=== PATIENT | female | born 1935 | race Caucasian/White ===

== ENCOUNTER → 2017-10-01 11:38 | Outpatient (CLI) | payer MEDICARE, OTHER, SELFPAY ==
[2017-10-01 13:18] LABS: Absolute Lymphocyte Count 1.38 X10^3/ul (0.83-4.51); Basophil# 0.04 X10^3/uL; Basophil% 0.7 % (0-1); Eosinophils% 3.3 % (0-5); Hematocrit 42.5 % (37-47); Hemoglobin 13.1 g/dl (12.0-15.0); Lymphocyte # 1.38 X10^3/ul (4.0); Lymphocyte % 22.7 % (19-41); Mean Corp Hgb Conc 30.8 g/gl (32-36); Mean Corpuscular Hgb 31.6 pg (27.0-32.0); Mean Corpuscular Volume 102.4 fL (81-99); Mean Platelet Vol. 13.1 fl (6.2-12.0); Monocyte# 0.47 X10^3/uL; Monocyte% 7.7 % (0-10); Neutrophil # 3.98 X10^3/uL (2.7-7.7); Neutrophil % 65.4 % (47-70); Platelet Count 148 K/mm3 (150-450); RBC Distribution Width CV 13.9 % (11.6-14.6); Red Blood Count 4.15 M/mm3 (4.2-5.4); White Blood Count 6.1 K/mm3 (4.4-11.0)
[2017-10-01 13:29] LABS: POSITIVE COUNT NO; POSITIVE DIFFERENTIAL NO; POSITIVE MORPHOLOGY NO
[2017-10-01 13:48] LABS: ALB/GLOB Ratio 1.3 RATIO (0.9-2.4); AST(SGOT) 21 U/L (15-37); Alanine Aminotransfer ALT/SGPT 27 U/L (13-56); Albumin, Serum 3.4 g/dL (3.2-5.0); Alkaline Phosphatase 104 U/L (45-117); Anion Gap 6 (5-15); BUN 13 mg/dL (7-18); BUN/Creat Ratio 14.1 RATIO (10-20); Calcium,Total 8.6 mg/dL (8.5-10.1); Chloride 106 mmol/L (98-107); Creatinine, Serum 0.92 mg/dL (0.55-1.02); EST Glomerular Filtration Rate 62 mL/min (>60); Est Glom Filt Rate - Afr Amer 75 mL/min (>60); Globulin 2.7 g/dL (2.2-4.2); Glucose 81 mg/dL (74-106); Potassium 4.3 mmol/L (3.5-5.1); Protein, Total 6.1 g/dL (6.4-8.2); Sodium Level 143 mmol/L (136-145); Thyroid Stim Hormone (TSH) 1.56 uIU/mL (0.358-3.74)
[2017-10-02 10:37] LABS: Vitamin D,25 Hydroxy 9.7 ng/mL (19.95-100.01)
== END ==
PROVIDERS: Family Provider Internal Medicine; Visit Provider Family Medicine Geriatric Medicine
DX: E55.9 Vitamin D deficiency, unspecified (principal); R53.83 Other fatigue
CPT/HCPCS: 36415; 80053; 82306; 84443; 85025

== ENCOUNTER → 2018-03-31 11:33 | Outpatient (CLI) | payer MEDICARE, OTHER, SELFPAY ==
[2018-03-31 12:03] LABS: Absolute Lymphocyte Count 1.36 X10^3/ul (0.83-4.51); Absolute Neutrophil Count 1.4 X10^3/uL (2.0-7.7); Basophil# 0.03 X10^3/uL; Eosinophil# 0.05 X10^3/uL; Eosinophils% 1.6 % (0-5); Hematocrit 37.7 % (37-47); Lymphocyte # 1.36 X10^3/ul (4.0); Lymphocyte % 44.3 % (19-41); Mean Corp Hgb Conc 31.8 g/gl (32-36); Mean Corpuscular Hgb 33.1 pg (27.0-32.0); Mean Corpuscular Volume 103.9 fL (81-99); Mean Platelet Vol. 12.4 fl (6.2-12.0); Monocyte# 0.28 X10^3/uL; Monocyte% 9.1 % (0-10); Neutrophil # 1.35 X10^3/uL (2.7-7.7); Platelet Count 68 K/mm3 (150-450); RBC Distribution Width CV 13.3 % (11.6-14.6); RBC Distribution Width SD 49.6 fl (35.1-43.9); Red Blood Count 3.63 M/mm3 (4.2-5.4); White Blood Count 3.1 K/mm3 (4.4-11.0)
[2018-03-31 12:21] LABS: POSITIVE COUNT NO; POSITIVE DIFFERENTIAL NO; POSITIVE MORPHOLOGY NO
[2018-03-31 16:12] LABS: ALB/GLOB Ratio 1.3 RATIO (0.9-2.4); AST(SGOT) 13 U/L (15-37); Alanine Aminotransfer ALT/SGPT 14 U/L (13-56); Albumin, Serum 3.4 g/dL (3.2-5.0); Alkaline Phosphatase 92 U/L (45-117); Anion Gap 11 (5-15); BUN 15 mg/dL (7-18); Calcium,Total 8.7 mg/dL (8.5-10.1); Chloride 108 mmol/L (98-107); EST Glomerular Filtration Rate 56 mL/min (>60); Est Glom Filt Rate - Afr Amer 68 mL/min (>60); Globulin 2.7 g/dL (2.2-4.2); Glucose 92 mg/dL (74-106); Potassium 4.3 mmol/L (3.5-5.1); Protein, Total 6.1 g/dL (6.4-8.2); Sodium Level 145 mmol/L (136-145); Thyroid Stim Hormone (TSH) 2.18 uIU/mL (0.358-3.74)
== END ==
PROVIDERS: Family Provider Internal Medicine; Visit Provider Family Medicine Geriatric Medicine
DX: E55.9 Vitamin D deficiency, unspecified (principal); R53.83 Other fatigue
CPT/HCPCS: 36415; 80053; 84443; 85025

== ENCOUNTER 2018-04-16 07:01 | Inpatient (IN) | payer MEDICARE, OTHER, SELFPAY ==
[2018-04-16 07:03] VITALS: BP 134/114; PULSE 78; RESP 20; TEMP 36.6; O2SAT 94; BMI 22.0
--- NOTE | 2018-04-16 07:07 | EKG12_ITS ---
Test Reason : Blood Pressure : / mmHG Vent. Rate : 070 BPM Atrial Rate : 070 BPM P-R Int : 158 ms QRS Dur : 076 ms QT Int : 394 ms P-R-T Axes : 046 -07 014 degrees QTc Int : 425 ms Normal sinus rhythm Normal ECG Confirmed by TIKI CROWE ([id number]), editorial director CRYSTAL JOY ([id number] on 04/22/2018 1:52:29 PM Referred By: Confirmed By:TIKI CROWE
--- NOTE | 2018-04-16 07:19 | ED.VISSUMM ---
- ER Visit Summary Date of Service: 04/16/18 Chief Complaint: Confusion History of Present Illness: The patient is a 82 F presenting with confusion. Per her family she had a very restless night. She was found at 4 AM this morning already dressed and awake. Family states this is unusual for her. She has had a constant twitching of her face and arms. She has a history of baseline dementia but is more confused than usual. She has been eating and drinking normally. She is unable to provide history. No recent falls per family. She is not on anticoagulants. Physical Examination: Vitals are stable. Patient is afebrile. Alert no acute distress. HEENT exam dry mucous membranes Neck is supple. Lungs are clear and equal bilaterally. Heart is regular rate and rhythm. Abdomen is soft nontender nondistended. Extremities symmetric edema Skin is warm and dry. Alert and oriented ?0, follows commands. Moves all extremities Remainder of exam is unremarkable. Emergency Department Course and Treatment: CBC normal except hemoglobin 11.9. Chemistries show sodium 147, BUN 23. INR 1.0. Urinalysis shows 25-50 white blood cells, 3+ bacteria. Troponin negative. Lactic acid is normal. Magnesium is normal. Chest x-ray shows no acute process. EKG is sinus rate of 70 with no acute ischemic changes. Urine culture was sent. She was given Rocephin IV and IV fluids. Discussed with the hospitalist for admission. Disposition: Admission Impression: Delirium secondary to UTI, dehydration This note was generated with LIS[employer] dictation software. It may contain incorrect words, spelling, and punctuation that were not noted in review of the chart prior to signing ED Disposition - Plan for ED Patient: Chief Complaint: Confusion Referrals: James Comer Chi, MD [Primary Care Provider] -
--- NOTE | 2018-04-16 07:19 | NURSING ---
NO OLD EKGS
[2018-04-16 07:49] LABS: Absolute Lymphocyte Count 1.22 X10^3/ul (0.83-4.51); Absolute Neutrophil Count 3.1 X10^3/uL (2.0-7.7); Basophil# 0.03 X10^3/uL; Basophil% 0.6 % (0-1); Eosinophil# 0.07 X10^3/uL; Eosinophils% 1.5 % (0-5); Hematocrit 37.8 % (37-47); Hemoglobin 11.9 g/dl (12.0-15.0); Lymphocyte # 1.22 X10^3/ul (4.0); Lymphocyte % 25.3 % (19-41); Mean Corp Hgb Conc 31.5 g/gl (32-36); Mean Corpuscular Hgb 32.3 pg (27.0-32.0); Mean Corpuscular Volume 102.7 fL (81-99); Mean Platelet Vol. 11.4 fl (6.2-12.0); Monocyte# 0.36 X10^3/uL; Monocyte% 7.5 % (0-10); Neutrophil # 3.14 X10^3/uL (2.7-7.7); Neutrophil % 65.1 % (47-70); POSITIVE COUNT NO; POSITIVE DIFFERENTIAL NO; POSITIVE MORPHOLOGY NO; Platelet Count 150 K/mm3 (150-450); RBC Distribution Width CV 13.8 % (11.6-14.6); RBC Distribution Width SD 52.3 fl (35.1-43.9); Red Blood Count 3.68 M/mm3 (4.2-5.4); White Blood Count 4.8 K/mm3 (4.4-11.0)
[2018-04-16 07:50] LABS: Mucous, Urine 0 SEEN /hpf (<or=2+)
[2018-04-16 08:04] LABS: Anion Gap 7 (5-15); BUN 23 mg/dL (7-18); BUN/Creat Ratio 23.4 RATIO (10-20); Calcium,Total 8.8 mg/dL (8.5-10.1); Chloride 111 mmol/L (98-107); Creatinine, Serum 0.98 mg/dL (0.55-1.02); EST Glomerular Filtration Rate 58 mL/min (>60); Est Glom Filt Rate - Afr Amer 70 mL/min (>60); Estimated Creatinine Clearance 43.04 ml/min; Glucose 110 mg/dL (74-106); Magnesium 2.3 mg/dL (1.6-2.6); Sodium Level 147 mmol/L (136-145)
[2018-04-16 08:05] LABS: Prothrombin Time (Protime)PT. 13.1 SECONDS (11.7-14.9)
[2018-04-16 08:19] LABS: Lactic Acid 1.4 mmol/L (0.4-2.0)
[2018-04-16 08:21] LABS: Color, Urine Yellow (Yellow); Glucose, Dipstick Normal (Normal); Ketone-Dipstick Negative (Negative); Leukocyte Esterase-Dipstick 500 /ul (Negative); Nitrite-Dipstick Negative (Negative); Occult Blood-Urine 250 /ul (Negative); Protein-Dipstick 100 mg/dl (Negative); Specific Gravity, Urine 1.025 (1.002-1.030); Urine Bilirubin Dipstick Negative (Negative); Urine Clarity Cloudy (Clear); Urine Urobilinogen Normal (Normal)
[2018-04-16 08:27] LABS: Bacteria 3+ /hpf (None Seen); Red Blood Cells-Urine 10-25 SEEN /hpf (0-5); Squamous Epithelial Cells - UA 0-5 SEEN /hpf (5-10)
[2018-04-16 08:28] LABS: White Blood Cells 25-50 SEEN /hpf (0-5)
[2018-04-16 09:01] VITALS: BP 138/99; PULSE 71; RESP 16; O2SAT 94
--- NOTE | 2018-04-16 10:07 | NURSING ---
MED SURG AMS, UTI, ALZ DEMENTIA INGE
--- NOTE | 2018-04-16 10:21 | PCM.HP.STD ---
Problem List (1) Alzheimer's dementia Status: Chronic (2) UTI (urinary tract infection) Status: Acute (3) Acute encephalopathy Status: Acute History of Present Illness Date of Admission: 04/16/18 Chief Complaint: Change in mental status today The patient is a 82 year old F with history of Alzheimer's dementia, from 2011 who lives with her sister who is her caregiver and power of commonwealth attorney was brought into ER after she was more confused, was dressed up at 4 AM in the morning today was awake. She was very restless and had is being picked like movement of head and shoulders. Patient has advanced Alzheimer's dementia and does not have meaningful communication. She has monosyllable words and garbled speech which does not make sense and hard to understand. No meaningful/purposeful history unobtainable from the patient. She had some chills for last 2 days. As per her sister, Ms. Karey Simmons, her forgetfulness is started in 2011 which got worse over 2 years to the point that she cannot take care of herself and was diagnosed Alzheimer's dementia in [facility]. ED initial blood work shows UA positive of pyuria, mild hematuria, leukocyte esterase positive but negative nitrite. No leukocytosis. BMP shows mild hyponatremia and hyperchloremia Past Medical History Past Medical History (Chronic Problems): Chronic Problems Alzheimer's dementia (Chronic) Allergies No Known Allergies Allergy (Verified 04/16/18 09:33) Home Medications: Ambulatory Orders Medication Instructions Recorded Lorazepam [Ativan] 1 mg PO TID PRN 04/16/18 Memantine HCl/Donepezil HCl 1 tab PO QHS 04/16/18 [Namzaric 28 mg-10 mg Capsule] Polyethylene Glycol 3350 [Miralax] 17 gm PO MOWEFR 04/16/18 Quetiapine Fumarate [Seroquel] 100 mg PO TID 04/16/18 Smoking Status: Unknown if ever smoked - *Family History Paternal History Items: - - Unobtainable Review of Systems Unable to obtain accurate/complete ROS d/t: Patient's advanced Alzheimer dementia and no meaningful conversation VTE Information - Inpt Only VTE Present on Admission: No VTE Mechan Device Prophylaxis: SCD's, None VTE Pharm Prophylaxis ordered?: Yes Patient Problems: Active and Suspected Problems UTI (urinary tract infection) (Acute) Acute encephalopathy (Acute) - Physical Exam General: Alert, Cooperative, Confused, Disoriented HEENT: Atraumatic, PERRLA, EOMI, Normocephalic Oral: Dry Mucosa Neck: Supple, No JVD, Negative Carotid Bruits Lungs: Clear to auscultation, Normal air movement Cardiovascular: Regular rate, Normal S1, Normal S2, No murmurs Abdomen: Bowel Sounds Present, Soft, Non Tender, Non-Distended Extremities: No edema, Capillary Refill Less than 3 Seconds Skin: No rashes, No breakdown Musculoskeletal: No Tenderness to Palpation of Joints or Extremities, Arthritic Changes, Muscle Wasting Neurological: Cranial nerves II-XII grossly intact, Neuro grossly intact Psych/Mental Status: Normal Affect, Appropriate Vital Signs Temp Pulse Resp BP Pulse Ox 97.8 F 71 16 138/99 H 94 04/16/18 07:03 04/16/18 09:01 04/16/18 09:01 04/16/18 09:01 04/16/18 09:01 Assessment/Plan All Active Problems UTI (urinary tract infection) (Acute) Acute encephalopathy (Acute) The patient is a 82 year old F with history of Alzheimer's dementia, from 2011 who lives with her sister who is her caregiver and power of commonwealth attorney was brought into ER after she was more confused, was dressed up at 4 AM in the morning today was awake. She was very restless and had is being picked like movement of head and shoulders. Patient has advanced Alzheimer's dementia and does not have meaningful communication. She has monosyllable words and garbled speech which does not make sense and hard to understand. No meaningful/purposeful history unobtainable from the patient. She had some chills for last 2 days. As per her sister, Ms. Karey Simmons, her forgetfulness is started in 2011 which got worse over 2 years to the point that she cannot take care of herself and was diagnosed Alzheimer's dementia in [facility]. ED initial blood work shows UA positive of pyuria, mild hematuria, leukocyte esterase positive but negative nitrite. No leukocytosis. BMP shows mild hyponatremia and hyperchloremia 1. Acute encephalopathy most probably infectious/metabolic on baseline advanced Alzheimer's dementia: Urine culture is being sent from ER. Patient is being admitted on regular floor. Started on IV Rocephin. IV fluid normal saline. 2. Alzheimer's dementia: Patient's sister is okay with taking care of the patient. She wants to take her back at discharge. practice managers consult for discharge planning. T and OT ordered. 3. Mild constipation on MiraLAX: DVT prophylaxis: On Lovenox 40 mils subcu daily. Code Visit Inpatient E&M: 42431 Init Hosp L2
[2018-04-16] MEDS: Ceftriaxone 1 GM/50 ML BAG IV (10:32)
[2018-04-16 10:53] VITALS: BMI 21.5
[2018-04-16 10:54] VITALS: BMI 21.4
[2018-04-16] MEDS: Enoxaparin 40 MG/0.4 ML Syringe SC (13:27)
[2018-04-16] MEDS: 0.9% Normal Saline 1,000 ML 100 ML IV (13:27)
--- NOTE | 2018-04-16 15:26 | CPS ---
patient unable to comprehend instruction
[2018-04-16] MEDS: LORazepam 1 MG Tablet PO (16:55)
[2018-04-16 17:09] VITALS: BP 130/69; PULSE 93; RESP 18; TEMP 36.6
[2018-04-16] MEDS: QUEtiapine 100 MG Tablet PO (17:21)
[2018-04-16 21:30] VITALS: BP 106/55; PULSE 70; RESP 20; TEMP 36.6; O2SAT 94
[2018-04-16 21:35] VITALS: O2SAT 94
--- NOTE | 2018-04-16 22:00 | NURSING ---
Pt to drowsy to give 2200 scheduled medications. Pt sister/caregiver at bedside, assisted this nurse to wake pt. Unable to safely administer medications at this time.
[2018-04-17] MEDS: QUEtiapine 100 MG Tablet PO (05:42)
[2018-04-17 06:00] VITALS: BP 135/78; PULSE 64; RESP 16; TEMP 36.6; O2SAT 100
[2018-04-17 06:19] LABS: Absolute Lymphocyte Count 1.16 X10^3/ul (0.83-4.51); Absolute Neutrophil Count 1.7 X10^3/uL (2.0-7.7); Basophil# 0.02 X10^3/uL; Basophil% 0.6 % (0-1); Eosinophil# 0.09 X10^3/uL; Eosinophils% 2.7 % (0-5); Hematocrit 37.3 % (37-47); Hemoglobin 11.5 g/dl (12.0-15.0); Lymphocyte # 1.16 X10^3/ul (4.0); Lymphocyte % 34.9 % (19-41); Mean Corp Hgb Conc 30.8 g/gl (32-36); Mean Corpuscular Hgb 31.9 pg (27.0-32.0); Mean Corpuscular Volume 103.3 fL (81-99); Mean Platelet Vol. 11.2 fl (6.2-12.0); Neutrophil # 1.65 X10^3/uL (2.7-7.7); Neutrophil % 49.8 % (47-70); Platelet Count 144 K/mm3 (150-450); RBC Distribution Width CV 13.8 % (11.6-14.6); RBC Distribution Width SD 51.8 fl (35.1-43.9); Red Blood Count 3.61 M/mm3 (4.2-5.4); White Blood Count 3.3 K/mm3 (4.4-11.0)
[2018-04-17 06:29] LABS: POSITIVE COUNT NO; POSITIVE DIFFERENTIAL NO; POSITIVE MORPHOLOGY NO
[2018-04-17 06:35] LABS: Anion Gap 4 (5-15); BUN 19 mg/dL (7-18); BUN/Creat Ratio 23.1 RATIO (10-20); Calcium,Total 8.3 mg/dL (8.5-10.1); Chloride 112 mmol/L (98-107); Creatinine, Serum 0.82 mg/dL (0.55-1.02); EST Glomerular Filtration Rate 71 mL/min (>60); Est Glom Filt Rate - Afr Amer 86 mL/min (>60); Estimated Creatinine Clearance 51.44 ml/min; Glucose 96 mg/dL (74-106); Potassium 4.5 mmol/L (3.5-5.1); Sodium Level 146 mmol/L (136-145)
[2018-04-17] MEDS: Ceftriaxone 1 GM/50 ML BAG IV (09:39)
[2018-04-17] MEDS: Enoxaparin 40 MG/0.4 ML Syringe SC (10:41)
[2018-04-17] MEDS: Memantine Hydrochloride 10 MG Tablet PO (10:41)
--- NOTE | 2018-04-17 11:30 | CASEMGMT ---
SEKOU MENDIOLA Face to Face with patient for initial transition planning/care coordination assessment. SEKOU MENDIOLA introduced self and role at [facility]. Patient lying in bed, confused, sister Karey at bedside who is HPOA. Karey willing to participate in assessment and is able to answer all questions appropriately. Care providers, pharmacy, and demographics verified. Patient lives with sister in [facility] and assists with care. Sister denies need for DME. Sister states that patient attends adult day care 3 times per week. Patient also has aide services through [facility]. Sister wishes for patient to discharge home, denies additional needs at this time. Sister states she has no further needs or concerns at this time. CM to follow for discharge planning needs that may arise. Disposition plan: Patient to discharge home with family suppor, aide services, adult day care, and follow-up plans in place. Debi MORFIN, RN, CM
--- NOTE | 2018-04-17 11:50 | PCM.DC ---
- Discharge Diagnoses Current Active Problems: Current Active and Chronic Problems Alzheimer's dementia (Chronic) UTI (urinary tract infection) (Acute) Acute encephalopathy (Acute) You will use the following diet at home:: Regular Discharge Activity: May Not Drive Weight Bearing Status: Weight bearing as tolerated Call your doctor if you observe: Fever of 101 or Higher, Inability to urinate, Inability to have a bowel movement, Shortness of breath Allergies/Adverse Reactions: Allergies No Known Allergies Allergy (Verified 04/16/18 09:33) Medications to take at Discharge Lorazepam [Ativan] 1 mg PO TID PRN 04/16/18 Memantine HCl/Donepezil HCl [Namzaric 28 mg-10 mg Capsule] 1 tab PO QHS 04/16/18 Polyethylene Glycol 3350 [Miralax] 17 gm PO MOWEFR 04/16/18 Quetiapine Fumarate [Seroquel] 100 mg PO TID 04/16/18 Docusate Sodium [Colace] 200 mg PO BID PRN PRN capsule 04/17/18 Smz/Tmp Ds [Bactrim Ds] 1 tab PO BID #2 tab 04/17/18 The following prescriptions were given: Smz/Tmp Ds [Bactrim Ds] 1 tab PO BID #2 tab Primary Care Physician: James Comer Chi, MD [Primary Care Provider] - Please follow up with your Primary Care Physician in: in 2 weeks Test Results: Test results from this visit will be discussed in further detail at your follow-up appointment, if applicable.
--- NOTE | 2018-04-17 12:31 | PCM.DC.SUM ---
Discharge Date and Diagnosis Date of Admission: 04/16/18 Date of Discharge: 04/17/18 - Primary Discharge Diagnosis Active and Suspected Problems Acute encephalopathy most probably infectious/metabolic on baseline advanced Alzheimer's dementia: Culture negative lower UTI/cystitis Alzheimer's dementia: P - Secondary Discharge Diagnosis Chronic Problems Alzheimer's dementia (Chronic) Hospital Course and Treatment Summary of Care Provided: T[] The patient is a 82 year old F with history of Alzheimer's dementia, from 2011 who lives with her sister who is her caregiver and power of securities attorney was brought into ER after she was more confused, was dressed up at 4 AM in the morning today was awake. She was very restless and had is being picked like movement of head and shoulders. Patient has advanced Alzheimer's dementia and does not have meaningful communication. She has monosyllable words and garbled speech which does not make sense and hard to understand. No meaningful/purposeful history unobtainable from the patient. She had some chills for last 2 days. As per her sister, Ms. Karey Simmons, her forgetfulness is started in 2011 which got worse over 2 years to the point that she cannot take care of herself and was diagnosed Alzheimer's dementia in [facility]. ED initial blood work shows UA positive of pyuria, mild hematuria, leukocyte esterase positive but negative nitrite. No leukocytosis. BMP shows mild hyponatremia and hyperchloremia 1. Acute encephalopathy most probably infectious/metabolic on baseline advanced Alzheimer's dementia: Patient treated with 2 days of IV ceftriaxone on on basis of positive UA and encephalopathy although detail history of lower urinary tract is not elicitable because of Alzheimer's dementia. She was discharged on 1 more day of Bactrim DS 1 tablet twice daily. Later on urine culture is negative. IV fluid normal saline discontinued 2. Alzheimer's dementia: Patient's sister is okay with taking care of the patient. Patient discharged to home 3. Mild constipation on MiraLAX: DVT prophylaxis: On Lovenox 40 mils subcu daily. Discharge medication reconciliation done. Discharge follow-up instructions discussed with the patient's sister. Discharge need was assessed by the case manager specialist. Discharge Activity: May Not Drive Weight Bearing Status: Weight bearing as tolerated Call your doctor if you observe: Fever of 101 or Higher, Inability to urinate, Inability to have a bowel movement, Shortness of breath Home Medications: Medications to take at Discharge Lorazepam [Ativan] 1 mg PO TID PRN 04/16/18 Memantine HCl/Donepezil HCl [Namzaric 28 mg-10 mg Capsule] 1 tab PO QHS 04/16/18 Polyethylene Glycol 3350 [Miralax] 17 gm PO MOWEFR 04/16/18 Quetiapine Fumarate [Seroquel] 100 mg PO TID 04/16/18 Docusate Sodium [Colace] 200 mg PO BID PRN PRN capsule 04/17/18 Smz/Tmp Ds [Bactrim Ds] 1 tab PO BID #2 tab 04/17/18 Following Prescrptions Were Given to Patient: Smz/Tmp Ds [Bactrim Ds] 1 tab PO BID #2 tab Primary Care Physician: James Comer Chi, MD [Primary Care Provider] - Please follow up with your Primary Care Physician in: in 2 weeks Medical Necessity - Tobacco Use Smoking Status: Unknown if ever smoked Meaningful Use Info Meaningful Use Diagnoses (Choose all that apply): None applicable Code Visit OBSV E&M: 13929 Observation care discharge
== END 2018-04-17 13:10 | disposition home or self-care (01) | DRG 689 ==
LOC: ED 10:09 → MS3 10:19
PROVIDERS: Admitting Provider Internal Medicine; Emergency Provider Emergency Medicine; Family Provider Family Medicine Geriatric Medicine; PCP Family Medicine Geriatric Medicine; Visit Provider Internal Medicine
DX: N30.91 Cystitis, unspecified with hematuria (principal); G93.41 Metabolic encephalopathy; K59.00 Constipation, unspecified; G30.9 Alzheimer's disease, unspecified; F02.80 Dementia in other diseases classified elsewhere, unspecified severity, without behavioral disturbance, psychotic disturbance, mood disturbance, and anxiety; E87.8 Other disorders of electrolyte and fluid balance, not elsewhere classified
CPT/HCPCS: 36415; 71045; 80048; 81001; 83605; 83735; 84484; 85025; 85610; 87086; 93005; 97162; 97166; 99285; J7030; J7040; P9612; A4216

== ENCOUNTER → 2019-04-03 08:50 | Outpatient (CLI) | payer MEDICARE, OTHER, SELFPAY ==
[2019-04-03 12:58] LABS: Absolute Lymphocyte Count 1.15 X10^3/uL (0.83-4.51); Absolute Neutrophil Count 2.1 X10^3/uL (2.0-7.7); Basophil# 0.04 X10^3/uL; Basophil% 1.1 % (0-1); Eosinophil# 0.14 X10^3/uL; Eosinophils% 3.8 % (0-5); Hematocrit 43.8 % (37-47); Hemoglobin 13.5 g/dL (12.0-15.0); Lymphocyte # 1.15 X10^3/ul (4.0); Lymphocyte % 30.9 % (19-41); Mean Corp Hgb Conc 30.8 g/dL (32-36); Mean Corpuscular Hgb 32.4 pg (27.0-32.0); Mean Platelet Vol. 12.3 fl (6.2-12.0); Monocyte# 0.28 X10^3/uL; Monocyte% 7.5 % (0-10); NRBC Flagged by Analyzer 0 % (0-5); Neutrophil % 56.4 % (47-70); Platelet Count 120 K/mm3 (150-450); RBC Distribution Width CV 13.1 % (11.6-14.6); RBC Distribution Width SD 50.8 fl (35.1-43.9); Red Blood Count 4.17 M/mm3 (4.2-5.4); White Blood Count 3.7 K/mm3 (4.4-11.0)
[2019-04-03 13:19] LABS: Vitamin D,25 Hydroxy 18.3 ng/mL (29.95-100.01)
[2019-04-03 13:20] LABS: AST(SGOT) 16 U/L (15-37); Alanine Aminotransfer ALT/SGPT 16 U/L (13-56); Albumin, Serum 3.2 g/dL (3.2-5.0); Alkaline Phosphatase 105 U/L (45-117); Anion Gap 6 (5-15); BUN 16 mg/dL (7-18); BUN/Creat Ratio 14.8 RATIO (10-20); Calcium,Total 8.6 mg/dL (8.5-10.1); Chloride 110 mmol/L (98-107); Creatinine, Serum 1.08 mg/dL (0.55-1.02); EST Glomerular Filtration Rate 51 mL/min (>60); Est Glom Filt Rate - Afr Amer 62 mL/min (>60); Globulin 3.1 g/dL (2.2-4.2); Glucose 92 mg/dL (74-106); Potassium 4.4 mmol/L (3.5-5.1); Protein, Total 6.3 g/dL (6.4-8.2); Sodium Level 144 mmol/L (136-145)
== END ==
PROVIDERS: Family Provider Family Medicine Geriatric Medicine; PCP Family Medicine Geriatric Medicine; Visit Provider Family Medicine Geriatric Medicine
DX: E55.9 Vitamin D deficiency, unspecified (principal); R53.83 Other fatigue
CPT/HCPCS: 36415; 80053; 82306; 84443; 85025

== ENCOUNTER → 2019-08-31 16:22 | Outpatient (CLI) | payer MEDICARE, SELFPAY | PROVIDERS: PCP Family Medicine Geriatric Medicine; Visit Provider Family Medicine Geriatric Medicine | DX: N39.0 Urinary tract infection, site not specified (principal) | CPT/HCPCS: 87086; 87088 ==

== ENCOUNTER → 2019-10-02 09:54 | Outpatient (CLI) | payer MEDICARE, SELFPAY ==
[2019-10-02 13:09] LABS: Absolute Lymphocyte Count 0.92 X10^3/uL (0.83-4.51); Absolute Neutrophil Count 3.2 X10^3/uL (2.0-7.7); Basophil# 0.04 X10^3/uL; Basophil% 0.9 % (0-1); Eosinophil# 0.04 X10^3/uL; Eosinophils% 0.9 % (0-5); Hematocrit 42.6 % (37-47); Hemoglobin 13.3 g/dL (12.0-15.0); Lymphocyte # 0.92 X10^3/ul (4.0); Mean Corp Hgb Conc 31.2 g/dL (32-36); Mean Corpuscular Hgb 32.2 pg (27.0-32.0); Mean Corpuscular Volume 103.1 fL (81-99); Mean Platelet Vol. 12.1 fl (6.2-12.0); Monocyte# 0.23 X10^3/uL; Monocyte% 5.2 % (0-10); NRBC Flagged by Analyzer 0 % (0-5); Neutrophil # 3.15 X10^3/uL (2.7-7.7); Neutrophil % 71.8 % (47-70); Platelet Count 161 K/mm3 (150-450); RBC Distribution Width CV 14.3 % (11.6-14.6); RBC Distribution Width SD 54.8 fl (35.1-43.9); Red Blood Count 4.13 M/mm3 (4.2-5.4); White Blood Count 4.4 K/mm3 (4.4-11.0)
[2019-10-02 13:32] LABS: ALB/GLOB Ratio 0.9 RATIO (0.9-2.4); AST(SGOT) 15 U/L (15-37); Alanine Aminotransfer ALT/SGPT 17 U/L (13-56); Alkaline Phosphatase 157 U/L (45-117); Anion Gap 6 (5-15); BUN 16 mg/dL (7-18); BUN/Creat Ratio 12.6 RATIO (10-20); Calcium,Total 8.8 mg/dL (8.5-10.1); Chloride 112 mmol/L (98-107); Creatinine, Serum 1.27 mg/dL (0.55-1.02); EST Glomerular Filtration Rate 43 mL/min (>60); Est Glom Filt Rate - Afr Amer 52 mL/min (>60); Globulin 3.5 g/dL (2.2-4.2); Glucose 129 mg/dL (74-106); Potassium 4.3 mmol/L (3.5-5.1); Protein, Total 6.5 g/dL (6.4-8.2); Sodium Level 142 mmol/L (136-145); Thyroid Stim Hormone (TSH) 2.62 uIU/mL (0.358-3.74)
== END ==
PROVIDERS: PCP Family Medicine Geriatric Medicine; Visit Provider Family Medicine Geriatric Medicine
DX: E55.9 Vitamin D deficiency, unspecified (principal); R53.83 Other fatigue
CPT/HCPCS: 36415; 80053; 82306; 84443; 85025

== ENCOUNTER → 2020-04-04 10:41 | Outpatient (CLI) | payer MEDICARE, SELFPAY ==
[2020-04-04 12:28] LABS: Absolute Lymphocyte Count 1.17 X10^3/uL (0.83-4.51); Absolute Neutrophil Count 4.5 X10^3/uL (2.0-7.7); Basophil# 0.04 X10^3/uL; Basophil% 0.6 % (0-1); Eosinophil# 0.07 X10^3/uL; Eosinophils% 1.1 % (0-5); Hematocrit 47.6 % (37-47); Hemoglobin 15.5 g/dL (12.0-15.0); Lymphocyte # 1.17 X10^3/ul (4.0); Lymphocyte % 18.7 % (19-41); Mean Corp Hgb Conc 32.6 g/dL (32-36); Mean Corpuscular Hgb 33.5 pg (27.0-32.0); Mean Corpuscular Volume 102.8 fL (81-99); Mean Platelet Vol. 12.7 fl (6.2-12.0); Monocyte# 0.43 X10^3/uL; Monocyte% 6.9 % (0-10); NRBC Flagged by Analyzer 0 % (0-5); Neutrophil # 4.52 X10^3/uL (2.7-7.7); Neutrophil % 72.4 % (47-70); Platelet Count 142 K/mm3 (150-450); RBC Distribution Width CV 14.2 % (11.6-14.6); RBC Distribution Width SD 54.4 fl (35.1-43.9); Red Blood Count 4.63 M/mm3 (4.2-5.4); White Blood Count 6.3 K/mm3 (4.4-11.0)
[2020-04-04 12:52] LABS: Vitamin D,25 Hydroxy 32.6 ng/mL
[2020-04-04 13:03] LABS: ALB/GLOB Ratio 0.8 RATIO (0.9-2.4); AST(SGOT) 13 U/L (15-37); Alanine Aminotransfer ALT/SGPT 16 U/L (13-56); Albumin, Serum 2.9 g/dL (3.2-5.0); Alkaline Phosphatase 142 U/L (45-117); Anion Gap 7 (5-15); BUN 17 mg/dL (7-18); BUN/Creat Ratio 13.9 RATIO (10-20); Chloride 111 mmol/L (98-107); Creatinine, Serum 1.22 mg/dL (0.55-1.02); EST Glomerular Filtration Rate 45 mL/min (>60); Est Glom Filt Rate - Afr Amer 54 mL/min (>60); Globulin 3.6 g/dL (2.2-4.2); Glucose 120 mg/dL (74-106); Potassium 4.2 mmol/L (3.5-5.1); Protein, Total 6.5 g/dL (6.4-8.2); Sodium Level 141 mmol/L (136-145); Thyroid Stim Hormone (TSH) 2.61 uIU/mL (0.358-3.74)
== END ==
PROVIDERS: PCP Family Medicine Geriatric Medicine; Visit Provider Family Medicine Geriatric Medicine
DX: E55.9 Vitamin D deficiency, unspecified (principal); R53.83 Other fatigue
CPT/HCPCS: 36415; 80053; 82306; 84443; 85025

== ENCOUNTER → 2020-10-03 10:35 | Outpatient (CLI) | payer MEDICARE, SELFPAY ==
[2020-10-03 11:09] LABS: Absolute Lymphocyte Count 0.99 X10^3/uL (0.83-4.51); Absolute Neutrophil Count 5.1 X10^3/uL (2.0-7.7); Basophil# 0.05 X10^3/uL; Basophil% 0.8 % (0-1); Eosinophil# 0.05 X10^3/uL; Eosinophils% 0.8 % (0-5); Hematocrit 51.3 % (37-47); Hemoglobin 16.4 g/dL (12.0-15.0); Lymphocyte # 0.99 X10^3/ul (4.0); Mean Corpuscular Hgb 33.1 pg (27.0-32.0); Mean Corpuscular Volume 103.4 fL (81-99); Mean Platelet Vol. 12.9 fl (6.2-12.0); Monocyte# 0.41 X10^3/uL; Monocyte% 6.2 % (0-10); NRBC Flagged by Analyzer 0.3 % (0-5); Neutrophil # 5.09 X10^3/uL (2.7-7.7); Neutrophil % 76.9 % (47-70); POSITIVE COUNT YES; Platelet Count 107 K/mm3 (150-450); RBC Distribution Width CV 14.1 % (11.6-14.6); RBC Distribution Width SD 53.4 fl (35.1-43.9); Red Blood Count 4.96 M/mm3 (4.2-5.4); White Blood Count 6.6 K/mm3 (4.4-11.0)
[2020-10-03 11:11] LABS: Differential Indicated SCAN CRITERIA MET
[2020-10-03 11:48] LABS: Platelet Morphology LARGE
[2020-10-03 11:53] LABS: ALB/GLOB Ratio 1.2 RATIO (0.9-2.4); AST(SGOT) 15 U/L (15-37); Alanine Aminotransfer ALT/SGPT 15 U/L (13-56); Albumin, Serum 3.4 g/dL (3.2-5.0); Alkaline Phosphatase 130 U/L (45-117); Anion Gap 10 (5-15); BUN 25 mg/dL (7-18); BUN/Creat Ratio 18.9 RATIO (10-20); Calcium,Total 8.8 mg/dL (8.5-10.1); Chloride 111 mmol/L (98-107); Creatinine, Serum 1.32 mg/dL (0.55-1.02); EST Glomerular Filtration Rate 41 mL/min (>60); Est Glom Filt Rate - Afr Amer 49 mL/min (>60); Globulin 2.9 g/dL (2.2-4.2); Glucose 111 mg/dL (74-106); Potassium 4.4 mmol/L (3.5-5.1); Protein, Total 6.3 g/dL (6.4-8.2); Sodium Level 142 mmol/L (136-145); Thyroid Stim Hormone (TSH) 2.12 uIU/mL (0.358-3.74)
== END ==
PROVIDERS: PCP Family Medicine Geriatric Medicine; Visit Provider Family Medicine Geriatric Medicine
DX: E55.9 Vitamin D deficiency, unspecified (principal); R53.83 Other fatigue
CPT/HCPCS: 36415; 80053; 82306; 84443; 85025

== ENCOUNTER → 2021-06-27 | Outpatient (REF) | payer MEDICARE, SELFPAY ==
[2021-06-27 21:34] LABS: Probe Check PASS
== END ==
LOC: LABSPEC 20:29
PROVIDERS: PCP Family Medicine Geriatric Medicine
DX: U07.1 COVID-19 (principal)
CPT/HCPCS: 87635; U0005; U0003